=== PATIENT | male | born 1950 | race Caucasian/White ===

== ENCOUNTER → 2016-07-15 | Outpatient (CLI) | payer MEDICARE, OTHER ==
--- NOTE | 2016-07-15 14:42 | RADRPT ---
PROCEDURE: XR left knee. CLINICAL INDICATION: Knee pain. TECHNIQUE: AP and weightbearing, lateral weightbearing and sunrise views are available for review. COMPARISON: No comparison available FINDINGS: There is a total knee replacement. There is no evidence of loosening of the prosthesis. The osseous structures are normal in mineralization, architecture and alignment No acute fracture or dislocation is seen.No osseous lesions are identified. The soft tissues are unremarkable . IMPRESSION: Unremarkable total knee replacement. RPTAT: [facility] .Gibran Rowland MD, Date Time Electronically viewed and signed by .Gibran Rowland MD, on 07/15/2016 14:41 .B/
--- NOTE | 2016-07-16 04:20 | HKNOTE ---
DATE OF SERVICE: 07/15/2016 MAIN COMPLAINT: Pain and swelling in the left knee. HISTORY OF MAIN COMPLAINT: The patient is a 65-year-old male who underwent a left knee replacement performed by Dr. Guzman in 2013. Although the knee never felt "100% normal," he was fairly satisfie d with the results of the surgery. He states that there is almost some mild pain. The main problem started about 1 year ago without any history of injury to the knee. This started as pain in the kn ee which became progressively worse. He was seen by Dr. Guzman on multiple occasions for an evaluat ion of his painful knee. Blood tests and test on the fluid aspirated from the knee prove that there was no infection in the knee. Dr. Guzman performed an operative arthroscopy on the knee on 06/14/2016. He told Mr. Narvaez that he found "significant inflammation and synovitis in the knee." He has subsequently recommended that the patient's knee replacement should be revised possibly with a somewhat constrained system to prevent the instability of the knee. The patient takes Percocet for his pain. He is limited in the distance he can walk. PHYSICAL EXAMINATION: GENERAL: The patient is a very youthful 65-year-old male. He comes in with his . The patient walks without a walking aid. His gait is normal. VITAL SIGNS: Height 5 foot 8 inches, weight 205 pounds. Blood pressure 135/70, temperature 98.7. LEFT KNEE: Anterior scar of previous knee replacement. No external sign of infection or inflammati on. 1+ effusion. Collateral ligaments are markedly lax. IMAGING: Plain x-rays of the left knee brought with him were reviewed. These show total knee repla cement components in place. All components are well aligned and well attached to the bone. No sign of loosening or any other problem. 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 MANAGEMENT: The patient has been advised that he probably would do well with a simple exchange of t he plastic insert between the 2 metal parts of the knee. In my opinion, that should solve his probl em. It certainly is a much lesser invasive procedure and may well just give him the relief that he is seeking. I will leave it at that. Dictated By: RYAN FINNEY/RORO Conf#: [id number] [facility]#: [id number]
== END | disposition home or self-care (01) ==
LOC: HKI 14:11
DX: M25.362 Other instability, left knee (principal); M65.862 Other synovitis and tenosynovitis, left lower leg; M23.8X2 Other internal derangements of left knee; Z96.652 Presence of left artificial knee joint
CPT/HCPCS: 73562; G0463